=== PATIENT | female | born 1950 | race Caucasian/White ===

== ENCOUNTER → 2019-06-11 18:42 | Outpatient (CLI) | payer MEDICARE, MEDICAID, SELFPAY | PROVIDERS: Visit Provider Nurse Practitioner Family | DX: N23 Unspecified renal colic (principal) | CPT/HCPCS: 87086; 87088; 87186 ==

== ENCOUNTER → 2019-06-16 09:23 | Outpatient (CLI) | payer MEDICARE, MEDICAID, SELFPAY ==
[2019-06-16 09:40] LABS: Basophils % 0.5 % (0.1-2.0); Eosinophils # 0.1 K/mm3 (0.0-0.4); Hematocrit 42.8 % (37.0-47.0); Hemoglobin 13.4 g/dL (12.2-16.2); Lymphocytes % 47.4 % (10-50); Mean Corpuscular HGB Conc 31.4 g/dL (31.8-35.4); Mean Corpuscular Hemoglobin 30.8 pg (27.0-31.2); Mean Corpuscular Volume 98.2 fl (81-99); Mean Platelet Volume 7.1 fl (7.4-10.4); Monocytes # 0.4 K/mm3 (0.1-1.0); Monocytes % 6.2 % (1.7-9.3); Neutrophils # 2.8 K/mm3 (1.8-7.8); Neutrophils % 43.9 % (37.0-80.0); Platelet Count 347 K/mm3 (142-424); Red Blood Count 4.36 M/mm3 (4.20-5.40); Red Cell Distribution Width 12.8 % (11.5-17.5); White Blood Count 6.3 K/mm3 (4.8-10.8)
[2019-06-16 18:17] LABS: Alanine Aminotransferase 19 U/L (12-78); Albumin Level 3.6 gm/dL (3.4-5.0); Albumin/Globulin Ratio 1.1 (1.1-1.8); Alkaline Phosphatase 52 U/L (46-116); Anion Gap 14.6 mEq/L (5-15); Aspartate Amino Transferase 13 U/L (15-37); Bilirubin,Total 0.4 mg/dL (0.2-1.0); Blood Urea Nitrogen 17 mg/dL (7-18); Calcium 9.1 mg/dL (8.5-10.1); Carbon Dioxide 27 mmol/L (21.0-32.0); Chloride 100 mmol/L (98-107); Chol/HDL Ratio 2.6 (1-3.5); Cholesterol 164 mg/dL (140-200); Creatinine,Serum 0.77 mg/dL (0.55-1.02); Estimated Glomerular Filt Rate 75 ml/min (>60); GFR (African American) 91 ML/MIN (>60); Globulin 3.3 gm/dl (1.3-3.2); Glucose 88 mg/dL (74-106); HDL Cholesterol 64 mg/dL (29-89); LDL Cholesterol 77 mg/dL (0-130); Potassium 4.6 mmoL/L (3.5-5.1); Sodium 137 mmol/L (136-145); T4 (Thyroxine) 10.8 ug/dl (4.7-13.3); Thyroid Stimulating Hormone 1.53 uIU/ml (0.358-3.740); Total Protein,Serum 6.9 gm/dL (6.4-8.2); Triglycerides 116 mg/dL (30-200); VLDL Cholesterol 23 mg/dL (0-40)
[2019-06-18 00:27] LABS: Vitamin B12 1277 pg/mL (232-1245); Vitamin D 25 Hydroxy 45.3 ng/mL (30.0-100.0)
== END ==
PROVIDERS: Visit Provider Nurse Practitioner Family
DX: E78.2 Mixed hyperlipidemia (principal); R53.83 Other fatigue; J45.909 Unspecified asthma, uncomplicated; I10 Essential (primary) hypertension; N23 Unspecified renal colic; N30.00 Acute cystitis without hematuria
CPT/HCPCS: 36415; 80053; 80061; 82607; 82652; 84436; 84443; 85025

== ENCOUNTER 2020-06-29 19:38 | Emergency (ER) | payer MEDICARE, MEDICAID, SELFPAY ==
[2020-06-29 19:49] VITALS: BP 145/72; PULSE 94; RESP 22; TEMP 37.1; O2SAT 93; BMI 21.6
--- NOTE | 2020-06-29 19:49 | XR_ITS ---
PROCEDURE: XR CHEST 2V CLINICAL HISTORY: SOB Heavy smoker with shortness of breath COMPARISON: CR CXR CHEST(2 VIEWS-NOT PORTABLE) from 01/26/2016 CR CXR CHEST(2 VIEWS-NOT PORTABLE) from 11/27/2016 FINDINGS: The cardiomediastinal silhouette and pulmonary vascularity are within normal limits. COPD with chronic changes. There are increased markings in the left lung base with obliteration of the left hemidiaphragm noted on the frontal view. There is a mild pectus deformity with obscuration of the right heart border. No acute bony abnormalities. IMPRESSION: Left lower lobe infiltrate Dictated by: Rashid Birmingham MD 06/29/2020 21:46 Rashid Birmingham MD in [place] 06/29/2020 21:46
--- NOTE | 2020-06-29 19:56 | HMH.EDUTC ---
[facility] [place] Clinical Impression: Bronchitis Disposition: Home, Self-Care Condition on Discharge: Good Instructions: Chronic Obstructive Pulmonary Disease (Alternative Therapy), Acute Bronchitis Additional Instructions: ? Start antibiotic today. Be sure to complete entire prescription even if feeling better ? Monitor temp. Tylenol every 4 hours as needed and / or ibuprofen every 6 hours as needed ( As long as your primary care physician has told you that it ok to take both. For fever/aches/pains ER if no less than 101 despite Tylenol or Motrin ? Humidifier/vaporizer or hot steamy shower ? Inhaler every 4-6 hours as needed like we discussed. If unsure how to use it, ask pharmacist to demonstrate how. Should help open airways and improve cough, wheezing, and shortness of breath ? Follow up IMMEDIATELY for new or worsening of symptoms OR no noticeable improvement over the next 48-72 hours. 911 immediately for any life threatening symptoms such as chest pain or difficulty breathing You was tested for COVID and given handout with instructions Call back to the [facility] in the next 48-72 hours for your results REturn if needed Follow up with Family Doctor if no improvement or any worsening of symptoms Straight to ER if any life threatening symptoms Prescriptions: Azithromycin [Z-Steven 250mg Tab] 250 mg PO DIRECTED #6 tab Transmission Status: Pending to [id number] Referrals: Igor Flynn APRN [Primary Care Provider] - As needed Time of Disposition: 20:48 Medical Decision Making - Gee Inquiry Pt receiving controlled substance: No Gee was queried for this patient: No Vital Signs: 06/29/20 19:49 Temperature 98.8 F Temperature Source Oral Pulse Rate [Right Brachial] 94 H Respiratory Rate 22 Blood Pressure [Right Arm] 145/72 H Blood Pressure Mean [Right Arm] 96 Blood Pressure Source [Right Arm] Automatic Cuff Blood Pressure Position [Right Arm] Sitting 02 Sat by Pulse Oximetry 93 L Oxygen Delivery Method Room Air Orders (Tests/Meds): ORDERS Category Date Time Status CXR 2 view (NOT portable) [XR chest 2V] Stat Exams 06/29/20 19:49 Taken Covid-19 Nasal PCR Sendout [facility] 06/29/20 20:30 Received - Radiology Data #1 Image(s): Chest Image Reviewed: Yes I reviewed the patient's radiology image w/the ED provider Discussed with ED physician, COPD with patchy like areas ? infiltrate [facility] [place] HPI - General Stated complaint: SOB Time Seen by Provider: 06/29/20 19:56 Mode of Arrival: Ambulatory Source of Information: Patient Limitations: No Limitations Description of Symptoms (Recalled from Triage Doc. by RN): PATIENT C/O SHORTNESS OF BREATH X 1 WEEK HEENT Symptoms (Recalled from RN notes): No Resp Symptoms (Recalled from RN notes): Yes Skin Symptoms (Recalled from RN notes): No MS Symptoms (Recalled from RN notes): No Functional Status (Recalled from RN notes): WNL - History of Present Illness Provider Complaint: Patient states that she has been feeling short of breath for about a week and has had cough and at times has been able to cough small amounts of phlem States that she feels like she did when she had bronchitis. States that she has also been having some nasal congestion and drainage that has continued to get worse States that she is an everyday smoker and has been using her inhalers at home - Related Data Home Medications Medication Instructions Recorded Confirmed aspirin 81 mg tablet,delayed 81 mg PO DAILY tab 04/23/18 06/11/19 release calcium carbonate 600 mg calcium 600 mg PO BID tab 04/23/18 06/11/19 (1,500 mg) tablet diphenhydramine HCl 25 mg tablet 50 mg PO .QAM-QPM PRN tab 04/23/18 06/11/19 qipvzqqp-glwr-hjv-folic acid 3,500 1 tab PO DAILY tab 04/23/18 06/11/19 unit-18 mg-0.4 mg chewable tablet Previous Rx's Medication Instructions Recorded fluticasone furoate 100 1 inh INHALATION Q24H #60 each 04/23/18 mcg-vilanterol 25 mcg/dose inhalation
[2020-06-29 20:49] VITALS: BP 145/72; PULSE 94; RESP 22; TEMP 37.1; O2SAT 93
[2020-07-01 22:33] LABS: Covid-19 Nasal PCR Sendout Lex Not Detected
== END 2020-06-29 20:55 | disposition home or self-care (01) ==
PROVIDERS: Emergency Provider Nurse Practitioner; PCP Nurse Practitioner Family
DX: J20.9 Acute bronchitis, unspecified (principal); J44.0 Chronic obstructive pulmonary disease with (acute) lower respiratory infection; F17.210 Nicotine dependence, cigarettes, uncomplicated; I10 Essential (primary) hypertension; E78.5 Hyperlipidemia, unspecified; Z79.899 Other long term (current) drug therapy; Z03.818 Encounter for observation for suspected exposure to other biological agents ruled out
CPT/HCPCS: 71046; 99201; U0004

== ENCOUNTER → 2022-01-11 15:29 | Outpatient (CLI) | payer MEDICARE, MEDICAID, SELFPAY ==
[2022-01-11 17:57] LABS: Basophils # 0.1 K/mm3 (0-0.2); Basophils % 1.4 % (0.1-2.0); Eosinophils # 0.1 K/mm3 (0.0-0.4); Eosinophils % 1.1 % (0.1-12.0); Hematocrit 43.8 % (37.0-47.0); Lymphocytes # 2.2 K/mm3 (0.7-4.5); Lymphocytes % 34.2 % (10-50); Mean Corpuscular Hemoglobin 32.4 pg (27.0-31.2); Mean Corpuscular Volume 101.4 fl (81-99); Mean Platelet Volume 8.2 fl (7.4-10.4); Monocytes # 0.4 K/mm3 (0.1-1.0); Monocytes % 6.7 % (1.7-9.3); Neutrophils # 3.7 K/mm3 (1.8-7.8); Neutrophils % 56.6 % (37.0-80.0); Platelet Count 436 K/mm3 (142-424); Red Blood Count 4.32 M/mm3 (4.20-5.40); Red Cell Distribution Width 13.1 % (11.5-17.5); White Blood Count 6.5 K/mm3 (4.8-10.8)
[2022-01-11 18:58] LABS: Alanine Aminotransferase 28 U/L (12-78); Albumin Level 4.3 g/dl (3.5-5.0); Albumin/Globulin Ratio 1.5 (1.1-1.8); Alkaline Phosphatase 73 U/L (38-126); Anion Gap 11.4 mEq/L (5-15); Aspartate Amino Transferase 28 U/L (14-36); Bilirubin,Total 0.3 mg/dl (0.2-1.3); Blood Urea Nitrogen 15 mg/dl (7-17); Calcium 9.3 mg/dl (8.4-10.2); Carbon Dioxide 25 mmol/L (22.0-30.0); Chloride 101 mmol/L (98-107); Chol/HDL Ratio 2.6 (1-3.5); Cholesterol 227 mg/dl (140-200); Estimated Glomerular Filt Rate 99 ml/min (>60); GFR (African American) 120 ML/MIN (>60); Globulin 2.8 g/dL (1.3-3.2); Glucose 106 mg/dl (74-100); HDL Cholesterol 86 mg/dl (40-60); Potassium 4.4 mmoL/L (3.5-5.1); Sodium 133 mmol/L (136-145); Total Protein,Serum 7.1 g/dl (6.3-8.2); Triglycerides 172 mg/dl (30-150); VLDL Cholesterol 34 mg/dL (0-40)
[2022-01-11 19:09] LABS: Direct LDL Cholesterol 104.11 mg/dL (100-129)
[2022-01-11 19:17] LABS: T4 (Thyroxine) 10.8 ug/dl (5.53-11.0)
[2022-01-11 19:30] LABS: Thyroid Stimulating Hormone 0.89 uIU/mL (0.465-4.68)
== END ==
PROVIDERS: Visit Provider Nurse Practitioner Family
DX: I10 Essential (primary) hypertension (principal); E78.2 Mixed hyperlipidemia; J40 Bronchitis, not specified as acute or chronic
CPT/HCPCS: 80053; 80061; 84436; 84443; 85025

== ENCOUNTER 2022-04-21 12:29 | Emergency (ER) | payer MEDICARE, MEDICAID, SELFPAY ==
[2022-04-21 12:55] VITALS: BP 141/89; PULSE 79; RESP 22; TEMP 36.9; O2SAT 93; BMI 21.9
--- NOTE | 2022-04-21 13:10 | XR_ITS ---
FINAL REPORT CLINICAL HISTORY: congestion, pt states that she has been SOA since yesterday, Smoker for 30+ years. COMPARISON: June 29, 2020 FINDINGS: Two views of the chest were obtained. The heart size and pulmonary vascularity are within normal limits. The mediastinum is normal. Mild scarring is noted. There is no pneumothorax. The bony thorax is intact. IMPRESSION: No active cardiopulmonary disease. Reviewed, Interpreted and Dictated by Braden Gastelum III, MD Transcribed by Danielle Lee Authenticated and [facility]
--- NOTE | 2022-04-21 13:21 | HMH.EDUTC ---
[facility] [place]: COPD exacerbation Disposition: Home, Self-Care Condition on Discharge: Good Instructions: DI for Chronic Obstructive Pulmonary Disease, DI for Shortness of Breath, COPD: When to Call for Help Additional Instructions: ? Start antibiotic today. Be sure to complete entire prescription even if feeling better ? Monitor temp. Tylenol every 4 hours as needed and / or ibuprofen every 6 hours as needed ( As long as your primary care physician has told you that it ok to take both. For fever/aches/pains ER if no less than 101 despite Tylenol or Motrin ? Humidifier/vaporizer or hot steamy shower ? Inhaler every 4-6 hours as needed like we discussed. If unsure how to use it, ask pharmacist to demonstrate how. Should help open airways and improve cough, wheezing, and shortness of breath *Tessalon Perles will not cause drowsiness but use at bedtime to help stop cough so that you may get some rest. *Start steroid today. Helps with inflammation therefore, cough and wheezing. Follow directions on the package. Reviewed side effects. Patient reports taking them before. Follow up IMMEDIATELY for new or worsening of symptoms OR no noticeable improvement over the next 48-72 hours. 911 immediately for any life threatening symptoms such as chest pain or difficulty breathing Prescriptions: Benzonatate [Benzonatate 100mg cap] 100 mg PO Q8HP PRN #15 cap PRN Reason: Cough Transmission Status: Received by [facility] Nystatin [Nystatin Susp 500,000 Units/5mL Udc] 4 ml PO QID 10 Days #160 ml Transmission Status: Received by [facility] predniSONE [Prednisone 20mg Tab] 20 mg PO BID 5 Days #10 tab Transmission Status: Received by [facility] Azithromycin [Z-Steven 250mg Tab] 250 mg PO DIRECTED #6 tab Transmission Status: Received by [facility] Referrals: Marty Bennett MD [Primary Care Provider] - As needed Time of Disposition: 14:15 Medical Decision Making - Gee Inquiry Pt receiving controlled substance: No Gee was queried for this patient: No Vital Signs: 04/21/22 12:55 04/21/22 14:20 Temperature 98.4 F 98.4 F Temperature Source Oral Pulse Rate 79 Pulse Rate [Right Brachial] 79 Respiratory Rate 22 22 Blood Pressure 141/89 H Blood Pressure [Right Arm] 141/89 H Blood Pressure Mean [Right Arm] 106 Blood Pressure Source [Right Arm] Automatic Cuff Blood Pressure Position [Right Arm] Sitting 02 Sat by Pulse Oximetry 93 L Oxygen Delivery Method Room Air - Radiology Data #1 Image(s): Chest Image Reviewed: Yes I reviewed the patient's radiology image no acute changes Medical Decision Narrative: medication discussed with pharmacy [facility] [place] - General Stated complaint: SOB; vomiting Time Seen by Provider: 04/21/22 13:21 Mode of Arrival: Ambulatory Source of Information: Patient Limitations: No Limitations Description of Symptoms (Recalled from Triage Doc. by RN): PATIENT C/O COUGH, SOA, AND NAUSEA SINCE YESTERDAY HEENT Symptoms (Recalled from RN notes): No Resp Symptoms (Recalled from RN notes): Yes Skin Symptoms (Recalled from RN notes): No MS Symptoms (Recalled from RN notes): No Functional Status (Recalled from RN notes): WNL - History of Present Illness Provider Complaint: Patient states she is a smoker and that she feels like she may have bronchitis States that she has been feeling a little SOA at times, cough, and N/V State that today she was still not feeling well so she came in to get checked before it go too bad States she also has COPD and it may be an exacerbation of that - Related Data Home Medications Medication Instructions Recorded Confirmed aspirin 81 mg tablet,delayed 81 mg PO DAILY tab 04/23/18 01/11/22 release calcium carbonate 600 mg calcium 600 mg PO BID tab 04/23/18 01/11/22 (1,500 mg) tablet diphenhydramine HCl 25 mg tablet 50 mg PO .QAM-QPM PRN tab 04/23/18 01/11/22 [id number]-
[2022-04-21 14:20] VITALS: BP 141/89; PULSE 79; RESP 22; TEMP 36.9; O2SAT 93
== END 2022-04-21 14:30 | disposition home or self-care (01) ==
PROVIDERS: Emergency Provider Nurse Practitioner; PCP Emergency Medicine
DX: J44.1 Chronic obstructive pulmonary disease with (acute) exacerbation (principal)
CPT/HCPCS: 71046; 99212; G0463

== ENCOUNTER → 2022-07-29 08:41 | Outpatient (CLI) | payer MEDICARE, MEDICAID, SELFPAY | PROVIDERS: PCP Nurse Practitioner Family; Visit Provider Nurse Practitioner Family | DX: N15.9 Renal tubulo-interstitial disease, unspecified (principal); B96.89 Other specified bacterial agents as the cause of diseases classified elsewhere | CPT/HCPCS: 87086; 87088; 87186 ==

== ENCOUNTER 2022-08-04 20:47 | Emergency (ER) | payer MEDICARE, MEDICAID, SELFPAY ==
[2022-08-04 20:57] VITALS: BP 166/94; PULSE 104; RESP 16; TEMP 36.4; O2SAT 94; BMI 23.3
--- NOTE | 2022-08-04 20:58 | ECG_ITS ---
APPROVED REPORT Exam: Resting ECG HR:96 bpm ECG Measurements Heart Rate 96 AXES NJ 145 P 85 QRSd 78 QRS 76 QT 333 T 76 QTc 387 Conclusion SINUS RHYTHM WITH SINUS ARRHYTHMIA bi-atriial abnormality BORDERLINE ECG UNCONFIRMED REPORT Electronically signed by : Venancio Mcdermott MD 08/05/2022 17:39:47
[2022-08-04 21:01] VITALS: BP 155/90; PULSE 99; O2SAT 93
--- NOTE | 2022-08-04 21:03 | HMH.EDGENADL ---
Discharge Plan Disposition Patient Disposition: Home, Self-Care Condition: Good Prescriptions Prescriptions: New doxycycline hyclate 100 mg capsule 100 mg PO BID 5 Days Qty: 10 0RF No Action aspirin [Adult Low Dose Aspirin] 81 mg tablet,delayed release (DR/EC) 81 mg PO DAILY calcium carbonate [Calcium 600] 600 mg calcium (1,500 mg) tablet 600 mg PO BID phmkxfeu-fvfe-bdz-folic acid [Centrum] 3,500-18-0.4 unit-mg-mg tablet,chewable 1 tab PO DAILY lisinopril-hydrochlorothiazide 20-12.5 mg tablet 1 tab PO DAILY Rx Instructions: Take 1 tablet by mouth once daily pravastatin 40 mg tablet 40 mg PO DAILY estradiol 1 mg tablet See Rx Instructions .ROUTE .COMPLEX Rx Instructions: Take 1 tablet by mouth once daily meclizine 25 mg tablet See Rx Instructions .ROUTE .COMPLEX Rx Instructions: TAKE 1 TABLET BY MOUTH TWICE DAILY NEEDED FOR MOTION SICKNESS carbidopa-levodopa 10-100 mg tablet See Rx Instructions .ROUTE .COMPLEX Rx Instructions: TAKE 1 TABLET BY MOUTH ONCE DAILY AT BEDTIME ibuprofen 600 mg tablet See Rx Instructions .ROUTE .COMPLEX Rx Instructions: TAKE 1 TABLET BY MOUTH EVERY 6 HOURS NEEDED FOR PAIN albuterol sulfate 90 mcg/actuation HFA aerosol inhaler See Rx Instructions .ROUTE .COMPLEX Rx Instructions: INHALE 1 PUFF BY MOUTH EVERY 6 HOURS WITH SPACER fluticasone propionate 50 mcg/actuation spray,suspension See Rx Instructions .ROUTE .COMPLEX Rx Instructions: Use 1 spray(s) in each nostril once daily escitalopram oxalate 10 mg tablet See Rx Instructions .ROUTE .COMPLEX Rx Instructions: TAKE 1 TABLET BY MOUTH ONCE DAILY AT BEDTIME fluticasone furoate-vilanterol [Breo Ellipta] 100-25 mcg/dose blister with device See Rx Instructions .ROUTE .COMPLEX Rx Instructions: Inhale 1 puff by mouth once daily Referrals Follow up/Referrals: Marty Bennett MD [Primary Care Provider] - See instructions Activity Restrictions/Add. Instructions Additional Instructions/Restrictions: Please take your antibiotics as prescribed. Continue to drink plenty of fluids at home. If your condition worsens or any other concerns arise, please return to the emergency department for reassessment. Please follow-up with your primary care physician. Clinical Impressions Clinical Impression: Acute exacerbation of chronic obstructive pulmonary disease (COPD), Allergic reaction Instructions Patient Instructions: DI for Chronic Obstructive Pulmonary Disease Discharge ED Provider: Darcy Bal General Adult HPI General Chief complaint: Shortness of Breath/Dyspnea Stated complaint: both legs red,swollen,rash Time Seen by Provider: 08/04/22 21:03 Mode of Arrival: Family Vehicle Source of Information: Patient Limitations: No Limitations Description of Symptoms (Recalled from ER Triage Doc. by RN): 71 YO FEMALE PRESENTS WITH CC LOWER EXTREMITY RASH AND LOWER EXTREMITY EDEMA THAT BEGAN ALONG WITH FEELING LIKE CRAP LAST SUNDAY. STATES SHE FEELS SOMEWHAT DYSPNEIC. REPORTS THAT HER PCP INITIATED HER ON A MEDICINE FOR A KIDNEY INFECTION TWO WEEKS AGO. NO OTHER CHANGES OR NEW ISSUES/MEDICATIONS OTHER THAN THE ONE FOR THE INFECTION. PMH: COPD, 1 PPD+ SMOKER X 40 YEARS. AFEBRILE. DENIES CP/N/V/D. History of Present Illness HPI narrative: Patient is a 71-year-old female with a past medical history of COPD, not on oxygen at home presenting with a chief complaint of worsening shortness of breath for the past 1 week, generalized malaise and new rash on her bilateral lower extremities. She denies a fever at home, chest pain, productive cough, hemoptysis, lower extremity swelling, abdominal pain, chest pain, nausea, vomiting, diaphoresis, changes in GI/. Patient denies any new allergens or exposures. Patient has been rubbing Biofreeze on her lower extremities for pain due to arthritis. Ja
--- NOTE | 2022-08-04 21:14 | PC.NURSE ---
Dr. De La Cruz at [facility]
[2022-08-04 21:30] VITALS: BP 140/70; PULSE 90; O2SAT 92
--- NOTE | 2022-08-04 21:45 | XR_ITS ---
PROCEDURE INFORMATION: Exam: XR Chest Exam date and time: 08/04/2022 9:42 PM Age: 71 years old Clinical indication: Shortness of breath TECHNIQUE: Imaging protocol: Radiologic exam of the chest. Views: 2 views. COMPARISON: CR XR CHEST 2V 04/21/2022 1:13 PM FINDINGS: Lungs: Stigmata of old granulomatous disease. Bilateral apical scarring. Pleural spaces: Unremarkable. No pleural effusion. No pneumothorax. Heart/Mediastinum: Unremarkable. No cardiomegaly. Vasculature: Vascular calcifications. Bones/joints: Unremarkable. IMPRESSION: No acute findings.
[2022-08-04 21:57] LABS: Basophils # 0.1 K/mm3 (0-0.2); Basophils % 0.4 % (0.1-2.0); Eosinophils # 0.5 K/mm3 (0.0-0.4); Eosinophils % 2.7 % (0.1-12.0); Hematocrit 43.5 % (37.0-47.0); Hemoglobin 14.1 g/dL (12.2-16.2); Lymphocytes # 0.9 K/mm3 (0.7-4.5); Lymphocytes % 5.3 % (10-50); Mean Corpuscular HGB Conc 32.4 g/dL (31.8-35.4); Mean Corpuscular Volume 98.8 fl (81-99); Mean Platelet Volume 8.2 fl (7.4-10.4); Monocytes # 0.5 K/mm3 (0.1-1.0); Monocytes % 3.1 % (1.7-9.3); Neutrophils # 14.6 K/mm3 (1.8-7.8); Neutrophils % 88.4 % (37.0-80.0); Platelet Count 441 K/mm3 (142-424); Red Cell Distribution Width 13.5 % (11.5-17.5); White Blood Count 16.5 K/mm3 (4.8-10.8)
[2022-08-04 21:58] LABS: Chloride 92 mmol/L (98-107); Potassium 3.5 mmoL/L (3.5-5.1); Sodium 129 mmol/L (136-145)
[2022-08-04 21:59] LABS: MANUAL DIFFERENTIAL MANUAL DIFFERENTIAL (MANUAL DIFF)
[2022-08-04 22:00] VITALS: BP 167/88; PULSE 96; O2SAT 92
[2022-08-04 22:01] LABS: Alanine Aminotransferase 31 U/L (12-78); Albumin Level 3.7 g/dl (3.5-5.0); Albumin/Globulin Ratio 1.2 (1.1-1.8); Alkaline Phosphatase 87 U/L (38-126); Anion Gap 12.5 mEq/L (5-15); Aspartate Amino Transferase 30 U/L (14-36); Bilirubin,Total 0.1 mg/dl (0.2-1.3); Blood Urea Nitrogen 11 mg/dl (7-17); Carbon Dioxide 28 mmol/L (22.0-30.0); Creatinine Clearance Estimated 50 mL/min (50-200); Estimated Glomerular Filt Rate 99 ml/min (>60); GFR (African American) 120 ML/MIN (>60); Total Protein,Serum 6.7 g/dl (6.3-8.2)
[2022-08-04 22:02] LABS: Calcium 9.2 mg/dl (8.4-10.2); Glucose 148 mg/dl (74-100)
[2022-08-04 22:07] LABS: C-Reactive Protein 27.1 mg/L (0-4)
[2022-08-04 22:12] LABS: NT Pro Brain Natriuretic Pep. 1270 pg/mL (0-125)
[2022-08-04 22:16] LABS: Troponin I 0.03 ng/ml (0.00-0.034)
[2022-08-04 22:19] LABS: Lymphocytes % 8 % (10-50); Macrocytosis 1+; Monocytes % 1 % (2-9); Neutrophils % 83 % (42-76); Platelet Estimate Slight Increase; Total Cells Counted 100
[2022-08-04 22:30] VITALS: BP 157/77; PULSE 93; O2SAT 93
--- NOTE | 2022-08-04 22:30 | PC.NURSE ---
RT at [facility] to administer breathing treatment
[2022-08-04 23:53] LABS: Appearance,Urine CLEAR (Clear); Blood, Urine TRACE-I (Negative); Color,Urine YELLOW (Yellow); Glucose,Urine (UA) Negative (Negative); Ketones,Urine 1+ (Negative); Leukocyte Esterase,Urine Negative (Negative); Microscopic, Urine URINE MICROSCOPIC (MICROSCOPIC); Nitrate,Urine Negative (Negative); Protein,Urine Negative (Negative); Specific Gravity, Urine 1.015 (1.005-1.030); Urobilinogen,Urine 0.2 EU/dl (0.2)
[2022-08-04 23:58] LABS: Bilirubin,Urine Negative (Negative)
[2022-08-05 00:41] LABS: Troponin I 0.03 ng/ml (0.00-0.034)
[2022-08-05 01:29] VITALS: BP 166/67; PULSE 72; RESP 16; TEMP 36.8; O2SAT 98
== END 2022-08-05 01:42 | disposition home or self-care (01) ==
PROVIDERS: Emergency Provider Emergency Medicine; PCP Emergency Medicine
DX: J44.1 Chronic obstructive pulmonary disease with (acute) exacerbation (principal); T78.40XA Allergy, unspecified, initial encounter; Z79.82 Long term (current) use of aspirin; Z79.890 Hormone replacement therapy; Z79.899 Other long term (current) drug therapy; E78.5 Hyperlipidemia, unspecified; I10 Essential (primary) hypertension; G25.81 Restless legs syndrome
CPT/HCPCS: 71046; 80053; 81001; 83880; 84484; 85007; 85025; 86140; 93005; 94640; 99284

== ENCOUNTER → 2023-08-22 06:40 | Outpatient (CLI) | payer MEDICARE, MEDICAID, SELFPAY ==
[2023-08-22 18:23] LABS: Basophils % 0.6 % (0.1-2.0); Eosinophils # 0.1 K/mm3 (0.0-0.4); Eosinophils % 0.9 % (0.1-12.0); Hematocrit 43.7 % (37.0-47.0); Hemoglobin 14.7 g/dL (12.2-16.2); Lymphocytes % 30.8 % (10-50); Mean Corpuscular HGB Conc 33.7 g/dL (31.8-35.4); Mean Corpuscular Hemoglobin 34.8 pg (27.0-31.2); Mean Corpuscular Volume 103.4 fl (81-99); Mean Platelet Volume 7.4 fl (7.4-10.4); Monocytes # 0.5 K/mm3 (0.1-1.0); Monocytes % 7.7 % (1.7-9.3); Neutrophils # 3.9 K/mm3 (1.8-7.8); Neutrophils % 60.1 % (37.0-80.0); Platelet Count 387 K/mm3 (142-424); Red Blood Count 4.23 M/mm3 (4.20-5.40); Red Cell Distribution Width 12.5 % (11.5-17.5); White Blood Count 6.5 K/mm3 (4.8-10.8)
[2023-08-22 19:20] LABS: Alanine Aminotransferase 22 U/L (12-78); Albumin Level 4.2 g/dl (3.5-5.0); Albumin/Globulin Ratio 1.6 (1.1-1.8); Alkaline Phosphatase 58 U/L (38-126); Aspartate Amino Transferase 27 U/L (14-36); Blood Urea Nitrogen 15 mg/dl (7-17); Calcium 9.5 mg/dl (8.4-10.2); Carbon Dioxide 25 mmol/L (22.0-30.0); Chloride 92 mmol/L (98-107); Chol/HDL Ratio 1.7 (1-3.5); Cholesterol 171 mg/dl (140-200); Estimated Glomerular Filt Rate 122 ml/min (>60); GFR (African American) 148 ML/MIN (>60); Globulin 2.6 g/dL (1.3-3.2); Glucose 96 mg/dl (74-100); HDL Cholesterol 99 mg/dl (40-60); Potassium 4.3 mmoL/L (3.5-5.1); Total Protein,Serum 6.8 g/dl (6.3-8.2); Triglycerides 86 mg/dl (30-150); VLDL Cholesterol 17 mg/dL (0-40)
[2023-08-22 19:29] LABS: Bilirubin,Total 0.1 mg/dl (0.2-1.3)
[2023-08-22 19:43] LABS: Direct LDL Cholesterol 69.86 mg/dL (100-129)
[2023-08-22 19:54] LABS: Thyroid Stimulating Hormone 1.06 uIU/mL (0.465-4.68)
[2023-08-22 21:49] LABS: Anion Gap 16.3 mEq/L (5-15); Sodium 129 mmol/L (136-145)
== END ==
PROVIDERS: PCP Nurse Practitioner Family; Visit Provider Nurse Practitioner Family
DX: E55.9 Vitamin D deficiency, unspecified (principal); I10 Essential (primary) hypertension; Z68.1 Body mass index [BMI] 19.9 or less, adult; Z72.0 Tobacco use
CPT/HCPCS: 80053; 80061; 82306; 84443; 85025

== ENCOUNTER → 2023-08-24 14:30 | Outpatient (CLI) | payer MEDICARE, MEDICAID, SELFPAY ==
--- NOTE | 2023-08-24 14:35 | XR_ITS ---
FINAL REPORT CLINICAL HISTORY: R Hip Pain COMPARISON: None FINDINGS: RIGHT HIP Two views of the right hip demonstrate no acute fracture or dislocation. There is severe degenerative change of the right hip with marked joint space narrowing and sclerosis. There is mild degenerative change present involving the left hip. The visualized bony structures are well aligned. No soft tissue abnormality is seen. IMPRESSION: Severe degenerative change right hip. Reviewed, Interpreted and Dictated by Braden Gastelum III, MD Transcribed by Tammy Black Authenticated and [facility]
== END ==
PROVIDERS: PCP Nurse Practitioner Family; Visit Provider Nurse Practitioner Family
DX: M25.551 Pain in right hip (principal)
CPT/HCPCS: 73502

== ENCOUNTER 2024-09-16 15:54 | Outpatient (CLI) | payer MEDICARE, MEDICAID, SELFPAY ==
[2024-09-16 18:28] LABS: Basophils # 0.1 K/mm3 (0-0.2); Basophils % 0.9 % (0.1-2.0); Eosinophils # 0.1 K/mm3 (0.0-0.4); Eosinophils % 1.1 % (0.1-12.0); Hematocrit 41.7 % (37.0-47.0); Hemoglobin 13.9 g/dL (12.2-16.2); Lymphocytes # 2.1 K/mm3 (0.7-4.5); Lymphocytes % 26.5 % (10-50); Mean Corpuscular HGB Conc 33.4 g/dL (31.8-35.4); Mean Corpuscular Hemoglobin 32.8 pg (27.0-31.2); Mean Corpuscular Volume 98.5 fl (81-99); Mean Platelet Volume 7.7 fl (7.4-10.4); Monocytes # 0.6 K/mm3 (0.1-1.0); Monocytes % 7.6 % (1.7-9.3); Neutrophils # 5.1 K/mm3 (1.8-7.8); Neutrophils % 63.8 % (37.0-80.0); Platelet Count 374 K/mm3 (142-424); Red Blood Count 4.24 M/mm3 (4.20-5.40); Red Cell Distribution Width 12.6 % (11.5-17.5); White Blood Count 7.9 K/mm3 (4.8-10.8)
[2024-09-16 18:48] LABS: Alanine Aminotransferase 23 U/L (12-78); Albumin Level 4.1 g/dl (3.5-5.0); Albumin/Globulin Ratio 1.8 (1.1-1.8); Alkaline Phosphatase 76 U/L (38-126); Anion Gap 9.6 mEq/L (5-15); Aspartate Amino Transferase 25 U/L (14-36); Bilirubin,Total 0.5 mg/dl (0.2-1.3); Blood Urea Nitrogen 17 mg/dl (7-17); Calcium 9.7 mg/dl (8.4-10.2); Carbon Dioxide 28 mmol/L (22.0-30.0); Chloride 97 mmol/L (98-107); Chol/HDL Ratio 1.6 (1-3.5); Cholesterol 173 mg/dl (140-200); Estimated Glomerular Filt Rate 82 ml/min (>60); GFR (African American) 100 ML/MIN (>60); Globulin 2.3 g/dL (1.3-3.2); Glucose 107 mg/dl (74-100); HDL Cholesterol 107 mg/dl (40-60); Potassium 4.6 mmoL/L (3.5-5.1); Sodium 130 mmol/L (136-145); Total Protein,Serum 6.4 g/dl (6.3-8.2); Triglycerides 69 mg/dl (30-150); VLDL Cholesterol 14 mg/dL (0-40)
[2024-09-16 18:58] LABS: Direct LDL Cholesterol 63.31 mg/dL (100-129)
[2024-09-16 19:05] LABS: 25-OH Vitamin D, Total 44.6 ng/mL (30-100)
[2024-09-16 19:18] LABS: Thyroid Stimulating Hormone 1.78 uIU/mL (0.465-4.68)
== END 2024-09-16 23:59 | disposition home or self-care (01) ==
LOC: LAB.DROPOF 09-17 13:10
PROVIDERS: PCP Nurse Practitioner Family; Visit Provider Nurse Practitioner Family
DX: I10 Essential (primary) hypertension (principal); E78.2 Mixed hyperlipidemia; E55.9 Vitamin D deficiency, unspecified
CPT/HCPCS: 80053; 80061; 82306; 84443; 85025

== ENCOUNTER 2025-08-12 15:47 | Outpatient (CLI) | payer MEDICARE, MEDICAID, SELFPAY ==
[2025-08-12 21:43] LABS: Hematocrit 41.9 % (37.0-47.0); Hemoglobin 13.4 g/dL (12.2-16.2); Immature Granulocytes % 0.4 %; Mean Corpuscular HGB Conc 32.0 g/dL (31.8-35.4); Mean Corpuscular Hemoglobin 31.3 pg (27.0-31.2); Mean Corpuscular Volume 97.9 fl (81-99); Nucleated Red Blood Cells % 0 %; Platelet Count 396 K/mm3 (142-424); Red Blood Count 4.28 M/mm3 (4.20-5.40); Red Cell Distribution Width-SD 46.4 fL; White Blood Count 7.5 K/mm3 (4.8-10.8)
[2025-08-12 22:21] LABS: Alanine Aminotransferase 17 U/L (12-78); Albumin Level 3.7 g/dl (3.5-5.0); Albumin/Globulin Ratio 1.5 (1.1-1.8); Alkaline Phosphatase 77 U/L (38-126); Anion Gap 11.1 mEq/L (5-15); Aspartate Amino Transferase 24 U/L (14-36); Bilirubin,Total 0.5 mg/dl (0.2-1.3); Blood Urea Nitrogen 26 mg/dl (7-17); Calcium 9.1 mg/dl (8.4-10.2); Carbon Dioxide 27 mmol/L (22.0-30.0); Chloride 94 mmol/L (98-107); Cholesterol 163 mg/dl (140-200); Creatinine,Serum 1.00 mg/dl (0.52-1.04); Estimated Glomerular Filt Rate 55 ml/min (>60); GFR (African American) 66 ML/MIN (>60); Globulin 2.4 g/dL (1.3-3.2); Glucose 86 mg/dl (74-100); HDL Cholesterol 86 mg/dl (40-60); Potassium 5.1 mmoL/L (3.5-5.1); Sodium 127 mmol/L (136-145); Total Protein,Serum 6.1 g/dl (6.3-8.2); Triglycerides 62 mg/dl (30-150)
[2025-08-12 22:36] LABS: Free T4 (Free Thyroxine) 1.42 ng/dl (0.78-2.19)
[2025-08-12 22:51] LABS: Thyroid Stimulating Hormone 1.43 uIU/mL (0.465-4.68)
[2025-08-12 23:22] LABS: Hepatitis C Ab Qual. W/ RFX NEGATIVE (Negative)
[2025-08-14 07:16] LABS: Hepatitis B Surface Antigen Negative (Negative)
== END 2025-08-12 23:59 | disposition home or self-care (01) ==
LOC: LAB.DROPOF 08-13 14:01
PROVIDERS: PCP Nurse Practitioner Family; Visit Provider Nurse Practitioner Family
DX: E78.5 Hyperlipidemia, unspecified (principal); R53.83 Other fatigue; I10 Essential (primary) hypertension
CPT/HCPCS: 80053; 80061; 84439; 84443; 85025; 86803; 87340; 87389

== ENCOUNTER 2025-10-08 13:18 | Outpatient (CLI) | payer MEDICARE, MEDICAID, SELFPAY ==
[2025-10-08 20:25] LABS: Coronavirus 19, PCR Not Detected (NotDetected); Influenza A, PCR Not Detected (NotDetected); Influenza B, PCR Not Detected (NotDetected)
== END 2025-10-08 23:59 | disposition home or self-care (01) ==
LOC: LAB.DROPOF 10-09 12:44
PROVIDERS: PCP Nurse Practitioner Family; Visit Provider Nurse Practitioner
DX: J06.9 Acute upper respiratory infection, unspecified (principal)
CPT/HCPCS: 87631

== ENCOUNTER 2025-10-09 15:15 | Emergency (ER) | payer MEDICARE, MEDICAID, SELFPAY ==
[2025-10-09] VITALS (11 sets, daily range): BP systolic 84–147; BP diastolic 40–80; PULSE 62–96; RESP 14–28; TEMP 36.6–36.7; O2SAT 90–100; BMI 19.3
--- NOTE | 2025-10-09 15:30 | ED_ITS ---
<Statement entered by Helena Shelton DO - 10/11/25 22:13> I was consulted by the TAYLOR, and we discussed the complexity of problems being addressed. I approve the treatment and management plan for this patient's care in the emergency department, thus performing a substantial portion of the medical decision making. Helena Shelton DO Discharge Plan Disposition Chief Complaint: Upper Respiratory Infection Prescriptions Prescriptions: No Action meclizine 25 mg tablet 25 mg PO TID Qty: 90 2RF azithromycin 250 mg tablet See Rx Instructions PO .COMPLEX Qty: 6 0RF Rx Instructions: For 250 mg dose pack: take 500 mg today (day 1), then 250 mg for 4 days (days 2-5) PO aspirin [Adult Low Dose Aspirin] 81 mg tablet,delayed release (DR/EC) 81 mg PO DAILY calcium carbonate [Calcium 600] 600 mg calcium (1,500 mg) tablet 600 mg PO BID mufuesvd-epki-stk-folic acid [Centrum] 3,500-18-0.4 unit-mg-mg tablet,chewable 1 tab PO DAILY albuterol sulfate 90 mcg/actuation HFA aerosol inhaler See Rx Instructions .ROUTE .COMPLEX Qty: 8.5 2RF Rx Instructions: INHALE 1 PUFF BY MOUTH EVERY 6 HOURS WITH SPACER carbidopa-levodopa 10-100 mg tablet See Rx Instructions .ROUTE .COMPLEX Qty: 90 3RF Dose Instruction: TAKE 1 TABLET BY MOUTH ONCE DAILY AT BEDTIME Rx Instructions: TAKE 1 TABLET BY MOUTH ONCE DAILY AT BEDTIME celecoxib 100 mg capsule See Rx Instructions .ROUTE .COMPLEX Qty: 180 2RF Dose Instruction: Take 1 capsule by mouth twice daily Rx Instructions: Take 1 capsule by mouth twice daily escitalopram oxalate 20 mg tablet See Rx Instructions .ROUTE .COMPLEX Qty: 90 3RF Dose Instruction: Take 1 tablet by mouth once daily Rx Instructions: Take 1 tablet by mouth once daily fluticasone propionate 50 mcg/actuation spray,suspension See Rx Instructions .ROUTE .COMPLEX Qty: 16 2RF Rx Instructions: Use 1 spray(s) in each nostril once daily lisinopril-hydrochlorothiazide 20-12.5 mg tablet See Rx Instructions .ROUTE .COMPLEX Qty: 90 3RF Dose Instruction: TAKE 1 TABLET BY MOUTH ONCE DAILY FOR HIGH BLOOD PRESSURE Rx Instructions: TAKE 1 TABLET BY MOUTH ONCE DAILY FOR HIGH BLOOD PRESSURE pravastatin 40 mg tablet See Rx Instructions .ROUTE .COMPLEX Qty: 90 3RF Dose Instruction: TAKE 1 TABLET BY MOUTH ONCE DAILY FOR CHOLESTEROL Rx Instructions: TAKE 1 TABLET BY MOUTH ONCE DAILY FOR CHOLESTEROL ropinirole 3 mg tablet See Rx Instructions .ROUTE .COMPLEX Qty: 90 3RF Dose Instruction: Take 1 tablet by mouth once daily Rx Instructions: Take 1 tablet by mouth once daily Auvelity 45-105 mg tablet, IR and ER, biphasic See Rx Instructions .ROUTE .COMPLEX Qty: 180 3RF Dose Instruction: TAKE 1 TABLET BY MOUTH TWICE DAILY FOR DEPRESSION, SUICIDAL IDEATION Rx Instructions: TAKE 1 TABLET BY MOUTH TWICE DAILY FOR DEPRESSION, SUICIDAL IDEATION estradiol 1 mg tablet See Rx Instructions .ROUTE .COMPLEX Qty: 90 2RF Dose Instruction: Take 1 tablet by mouth once daily Rx Instructions: Take 1 tablet by mouth once daily fluticasone furoate-vilanterol [Breo Ellipta] 100-25 mcg/dose blister with device See Rx Instructions .ROUTE .COMPLEX Qty: 60 3RF Dose Instruction: INHALE 1 PUFF BY MOUTH ONCE DAILY FOR ALLERGY SYMPTOMS Rx Instructions: INHALE 1 PUFF BY MOUTH ONCE DAILY FOR ALLERGY SYMPTOMS Referrals Follow up/Referrals: Jaime Fernández APRN [Primary Care Provider, Family Practice] - See instructions Print Language Print Language: Armenian Discharge ED Provider: Helena Shelton General Adult HPI General Chief complaint: Upper Respiratory Infection Stated complaint: weak, dizzy, unable to eat Time Seen by Provider: 10/09/25 15:21 Mode of Arrival: Wheelchair Source of Information: Patient Description of Symptoms (Recalled from ER Triage Doc. by RN): Patient complaining of nausea, chills, body aches that started a few days ago. States she tested negative for flu/covid/rsv yesterday at [facility] and was given steroid shot and prescription for azithromycin, which she started today. History of Present Illness HPI narrative: 74-year-old female presents to the ED today for complaint of nausea, chills, body ache that all started a few days ago. She tested negative for flu, COVID, RSV yesterday at the urgent treatment center. She was given steroid shot and prescription of azithromycin. She did take 1 today. Patient says she is weak and dizzy with shortness of air and right hip pain. Patient has a long history of trochanteric bursitis and chronic osteoarthritis of right hip pain, COPD, UTIs Related Data Home Medications ?Medication ?Instructions ?Recorded ?Confirmed aspirin 81 mg tablet,delayed 81 mg PO DAILY ANTIPLATEL ET 04/23/18 10/08/25 release (Adult Low Dose Aspirin) calcium carbonate (Calcium 600) 600 mg PO BID Suppleme nt 04/23/18 10/08/25 ubnooqsv-dubf-eus-folic acid 3,500 1 tab PO DAILY Supp lement 04/23/18 10/08/25 unit-18 mg-0.4 mg chewable tablet (Centrum) Previous Rx's ?Medication ?Instructions ?Recorded dextromethorphan IR 45 See Rx Instructions .Route 0 01/13/25 mg-bupropion ER 105 mg biphasic .COMPLEX #180 tabs tablet (Auvelity) estradiol 1 mg tablet See Rx Instructions .Route 0 01/13/25 .COMPLEX #90 tabs albuterol sulfate 90 mcg/actuation See Rx Instructions .Route 03/04/25 aerosol inhaler .COMPLEX SOA #8.5 grams carbidopa 10 mg-levodopa 100 mg See Rx Instructions .R oute 03/04/25 tablet .COMPLEX #90 tabs celecoxib 100 mg capsule See Rx Instructions .Route 0 03/04/25 .COMPLEX #180 caps escitalopram oxalate 20 mg tablet See Rx Instructions .Route 03/04/25 .COMPLEX #90 tabs fluticasone propionate 50 See Rx Instructions .Route 0 03/04/25 mcg/actuation nasal .COMPLEX Allergy symptoms #1 6 grams spray,suspension lisinopril 20 See Rx Instructions .Route 0 03/04/25 mg-hydrochlorothiazide 12.5 mg .COMPLEX #90 tabs tablet pravastatin 40 mg tablet See Rx Instructions .Route 0 03/04/25 .COMPLEX #90 tabs ropinirole 3 mg tablet See Rx Instructions .Route 0 03/04/25 .COMPLEX #90 tabs Breo Ellipta 100 mcg-25 mcg/dose See Rx Instructions . Route 06/25/25 powder for inhalation (fluticasone .COMPLEX #60 ea furoate-vilanterol) meclizine 25 mg tablet 25 mg PO TID #90 tabs azithromycin 250 mg tablet See Rx Instructions PO .COM PLEX #6 10/08/25 tabs Allergies Allergy/AdvReac Type Severity Reaction Status Date / Time nitrofurantoin Allergy Mild Anaphylaxis Verified 10/09/25 15:31 PFSH PFSH Disclaimer: The information contained in this section may have been updated after the patient was seen, as this information can be updated by other users. Medical History Asthma Hyperlipemia, mixed Restless leg syndrome Hypertension Social History Smoking Status: Current every day smoker tobacco type: cigarettes packs per day: 1 alcohol intake: never substance use type: denies use current occupational status: other Travel in the last 8 weeks?: None housing: apartment Have you lived/traveled outside [place] in past 30 days?: No Contact w/someone who lives/traveled outside [place] past 30 days?: No Exposure to someone with infectious disease in past 14 days?: No Do you have a fever (greater than 100.4 F or 38 C)?: No Have you tested positive for COVID-19?: No Exposed to someone with COVID-19 in past 14 days?: No Do you have a sore throat?: No Do you have a cough?: No Do you have any weakness?: No Do you have any diarrhea?: No Are you experiencing any unusual bleeding?: No Do you have any muscle aches/pain?: No Do you have any abdominal pain?: No Are you experiencing loss of taste or smell?: No Other Medical History Have you received the Flu Vaccine for this season: Yes Have you received the Pneumonia Vaccine: No ROS Obtained: Yes Systems reviewed as appropriate & no additional complaints except as documented Constitutional Constitutional: Reports as per HPI Physical Exam General General appearance: alert and in no apparent distress Head Head exam: normocephalic Eye Eye exam: Present PERRL and EOMI ENT ENT exam: Present normal oropharynx and mucous membranes moist Neck Neck exam: Present full ROM and trachea midline Respiratory Respiratory exam: Present wheezes Cardiovascular Cardiovascular exam: Present regular rate, normal rhythm, normal heart sounds, +S1 and +S2 Extremities Exam Extremities exam: Present full ROM and normal capillary refill Neurological Exam Neurological exam: Present alert and oriented X3 Skin Skin exam: Present warm and dry Medical Decision Making Medical Records Screening: Per USPSTF and CDC recommendations, given the prevalence of disease in our region, it is our hospital?s policy to screen for HIV and viral Hepatitis for all patients aged 18 and over and those with ongoing risk factors. Gee Inquiry Pt receiving controlled substance: No Gee was queried for this patient: No Vital Signs: 10/09/25 15:25 10/09/25 15:30 10/09/25 16:01 Temperature 98 F Temperature Source Tympanic Pulse Rate 96 H 90 Pulse Rate [Right Brachial] 96 H Respiratory Rate 16 28 H Blood Pressure 147/47 H 111/52 L Blood Pressure [Right Arm] 129/49 L Blood Pressure Mean Blood Pressure Mean [Right Arm] 75 Blood Pressure Source [Right Arm] Automatic Cuff Blood Pressure Position [Right Arm] Sitting 02 Sat by Pulse Oximetry 96 98 100 Oxygen Delivery Method Room Air 10/09/25 16:30 10/09/25 17:23 10/09/25 17:25 Temperature Temperature Source Pulse Rate Pulse Rate [Right Brachial] Respiratory Rate 26 H 21 Blood Pressure 105/42 L 84/55 L 136/47 L Blood Pressure [Right Arm] Blood Pressure Mean 67 Blood Pressure Mean [Right Arm] Blood Pressure Source [Right Arm] Blood Pressure Position [Right Arm] 02 Sat by Pulse Oximetry 90 L 90 L Oxygen Delivery Method 10/09/25 17:33 10/09/25 18:00 10/09/25 18:30 Temperature Temperature Source Pulse Rate 62 96 H 86 Pulse Rate [Right Brachial] Respiratory Rate Blood Pressure 121/45 L 132/70 124/40 L Blood Pressure [Right Arm] Blood Pressure Mean Blood Pressure Mean [Right Arm] Blood Pressure Source [Right Arm] Blood Pressure Position [Right Arm] 02 Sat by Pulse Oximetry 90 L 96 96 Oxygen Delivery Method 10/09/25 19:00 Temperature Temperature Source Pulse Rate 81 Pulse Rate [Right Brachial] Respiratory Rate Blood Pressure 108/53 L Blood Pressure [Right Arm] Blood Pressure Mean Blood Pressure Mean [Right Arm] Blood Pressure Source [Right Arm] Blood Pressure Position [Right Arm] 02 Sat by Pulse Oximetry 90 L Oxygen Delivery Method Lab Data Lab Results 10/09/25 15:25: WBC 11.3 H, RBC 2.48 L, Hgb 8.2 L, Hct 24.2 L, MCV 97.6, MCH 33.1 H, MCHC 33.9, RDW 13.2, Plt Count 369, MPV 9.2, Neut % (Auto) 65.8, Lymph % (Auto) 24.5, [place] % (Auto) 8.4, Eos % (Auto) 0.3, Baso % (Auto) 0.4, Neut # (Auto) 7.4, Lymph # (Auto) 2.8, [place] # (Auto) 1.0, Eos # (Auto) 0.0, Baso # (Auto) 0.0, D-Dimer 0.54 H, Sodium 130 L, Potassium 3.7, Chloride 98, Carbon Dioxide 22, Anion Gap 13.7, BUN 35 H, Creatinine 0.80, Estimated Creat Clear 44, Estimated GFR 71, Est GFR ( Amer) 85, Glucose 110 H, Calcium 9.2, Magnesium 1.9, Total Bilirubin 0.5, AST 42 H, ALT 29, Alkaline Phosphatase 74, T roponin I 0.28 H, NT-Pro-B Natriuret Pep 1490 H, Total Protein 6.6, Albumin 4.1, Globulin 2.5, Albumin/Globulin Ratio 1.6, Lipase 65 10/09/25 18:53: Troponin I 0.17 H 10/09/25 15:25 10/09/25 15:25 Orders (Tests/Meds): ED MEDICATIONS Discontinued Medications Generic Name Dose Route Start Last Admin Trade Name Freq PRN Reason Stop Dose Admin Albuterol/Ipratropium 9 ml 10/09/25 15:30 10/09/25 15:50 Ipratropium/Albuterol 3 Ml Neb IH 10/09/25 15:31 9 ml ONCE ONE Administration Aspirin 325 mg 10/09/25 15:30 10/09/25 15:49 Aspirin 325mg Tablet PO 10/09/25 15:31 325 mg ONCE ONE Administration Dexamethasone Sodium Phosphate 10 mg 10/09/25 15:30 10/09/25 15:56 Dexamethasone 4mg/Ml 1ml Vial IV 10/09/25 15:31 10 mg ONCE ONE Administration Magnesium Sulfate 2 gm in 50 mls @ 50 mls/hr 10/09/25 15:30 10/09/25 17:19 Magnesium Sulfate 2gm/50ml Premix IV 10/09/25 16:29 Infused ONCE ONE Infusion Iopamidol 70 ml 10/09/25 17:04 10/09/25 17:05 Iopamidol-370 (76%);100ml Bottle IV 10/09/25 17:05 70 ml ONCE ONE Administration Sodium Chloride 10 ml 10/09/25 17:04 10/09/25 17:05 Sodium Chloride 0.9% 10ml Syr (Rad Only) IV 10/09/25 17:05 10 ml ONCE ONE Administration Sodium Chloride 50 ml 10/09/25 17:04 10/09/25 17:05 0.9 % Sodium Chloride 50 Ml Vial IV 10/09/25 17:05 50 ml ONCE ONE Administration ORDERS Category Date Time Status CTA Chest [CT angio chest PE protocol] Stat Cat Scan 10/09/25 16:04 Completed Chest XR -- portable [XR chest portable] Stat Exams 10/09/25 15:30 Completed BNP [NT Pro Brain Natriuretic Pep.] Stat Lab 10/09/25 15:25 Completed CBC [Complete Blood Count Auto Diff] Stat Lab 10/09/25 15:25 Completed Comprehensive Metabolic Panel Stat Lab 10/09/25 15:25 Completed D-Dimer Stat Lab 10/09/25 15:25 Completed Lipase Stat Lab 10/09/25 15:25 Completed Magnesium Stat Lab 10/09/25 15:25 Completed Trop I [Troponin I] Stat Lab 10/09/25 15:25 Completed Troponin I Q3H Lab 10/09/25 18:53 Completed Troponin I Q3H Lab 10/09/25 21:45 Ordered HEART Score History (anamnesis): Slightly suspicious ECG: Normal Age: >65 years Risk factors: 3 or more risk factors Troponin: 1-3x normal limit HEART Score: 5 Medical Decision Narrative: patient is a 74-year-old female presenting to the emergency department for evaluation of weakness, dizziness, shortness of air and right hip pain. Patient is hemodynamically stable and nontoxic-appearing upon arrival, afebrile. Differential diagnosis includes COPD exacerbation,, COVID, flu, other viral illness, PE, ACS, among others. Workup will be conducted with hematologic labs, specific imaging, provocative tests. Initial inventions include analgesics. White count is 11.3, hemoglobin is 8 crit is 24, dimer was 0.54 and we did do a CTA which was negative. Sodium was 130 troponin was 0.28, second troponin was 0.17, BNP was 1490. Patient was explained that these numbers showed an NSTEMI. I talked to her and discussed the risk and Dr. Shelton talked to her and discussed the risk. She says that she does not want to stay and she does not care and she wants to go home. She wants to smoke. Patient will sign AMA form. Critical Care Critical Care Time Critical Care Time: No
--- NOTE | 2025-10-09 15:30 | XR_ITS ---
FINAL REPORT CLINICAL HISTORY: SOB N/V Body Aches Hold/Cold Flashes COMPARISON: None FINDINGS: The heart size is normal. The mediastinum is normal. The lungs are hyperinflated. There are mild chronic changes. There is no focal infiltrate or edema. There are no pleural effusions. There is no pneumothorax. There is no osseous abnormality. IMPRESSION: No acute cardiopulmonary process Reviewed, Interpreted and Dictated by Benny Gross MD Transcribed by Danielle Lee Authenticated and [facility]
--- NOTE | 2025-10-09 15:31 | ECG_ITS ---
APPROVED REPORT Exam: Resting ECG HR:95 bpm ECG Measurements Heart Rate [address] 149 P 87 QRSd 79 QRS 82 QT 342 T 69 QTc 395 Conclusion SINUS RHYTHM POSSIBLE LEFT ATRIAL ENLARGEMENT [-0.1mV P-WAVE IN V1/V2] BORDERLINE ECG UNCONFIRMED REPORT Electronically signed by : ANDERSON ARRIETA, 10/12/2025 00:19:32
[2025-10-09 15:40] LABS: Hematocrit 24.2 % (37.0-47.0); Hemoglobin 8.2 g/dL (12.2-16.2); Immature Granulocytes % 0.6 %; Mean Corpuscular HGB Conc 33.9 g/dL (31.8-35.4); Mean Corpuscular Hemoglobin 33.1 pg (27.0-31.2); Mean Corpuscular Volume 97.6 fl (81-99); Nucleated Red Blood Cells % 0 %; Platelet Count 369 K/mm3 (142-424); Red Blood Count 2.48 M/mm3 (4.20-5.40); Red Cell Distribution Width-SD 46.5 fL; White Blood Count 11.3 K/mm3 (4.8-10.8)
[2025-10-09 15:49] LABS: Alanine Aminotransferase 29 U/L (12-78); Albumin Level 4.1 g/dl (3.5-5.0); Albumin/Globulin Ratio 1.6 (1.1-1.8); Alkaline Phosphatase 74 U/L (38-126); Anion Gap 13.7 mEq/L (5-15); Aspartate Amino Transferase 42 U/L (14-36); Bilirubin,Total 0.5 mg/dl (0.2-1.3); Blood Urea Nitrogen 35 mg/dl (7-17); Calcium 9.2 mg/dl (8.4-10.2); Carbon Dioxide 22 mmol/L (22.0-30.0); Chloride 98 mmol/L (98-107); Creatinine Clearance Estimated 44 mL/min (50-200); Creatinine,Serum 0.80 mg/dl (0.52-1.04); Estimated Glomerular Filt Rate 71 ml/min (>60); GFR (African American) 85 ML/MIN (>60); Globulin 2.5 g/dL (1.3-3.2); Glucose 110 mg/dl (74-100); Lipase 65 U/L (23-300); Magnesium 1.9 mg/dl (1.6-2.3); Potassium 3.7 mmoL/L (3.5-5.1); Sodium 130 mmol/L (136-145); Total Protein,Serum 6.6 g/dl (6.3-8.2)
[2025-10-09] MEDS: ASPIRIN 325MG TABLET 325 MG PO (15:49)
[2025-10-09] MEDS: MAGNESIUM SULFATE IN WATER 2 GM/50 ML PIGGYBACK IV (15:50)
[2025-10-09] MEDS: IPRATROPIUM/ALBUTEROL 3 ML NEB 9 ML IH (15:50)
[2025-10-09 15:53] LABS: D-Dimer 0.54 ug/mL (0.0-0.5)
[2025-10-09] MEDS: DEXAMETHASONE 4MG/ML 1ML VIAL 10 MG IV (15:56)
[2025-10-09 15:58] LABS: NT Pro Brain Natriuretic Pep. 1490 pg/mL (0-125)
[2025-10-09 16:03] LABS: Troponin I 0.28 ng/ml (0.00-0.034)
--- NOTE | 2025-10-09 16:03 | PC.NURSE ---
Dr. Shelton notified of Troponin of 0.28.
--- NOTE | 2025-10-09 16:04 | CT_ITS ---
PROCEDURE INFORMATION: Exam: CTA Chest Without And With Contrast Exam date and time: 10/09/2025 4:58 PM Age: 74 years old Clinical indication: Shortness of breath; Additional info: SOA TECHNIQUE: Imaging protocol: Computed tomographic angiography of the chest without and with contrast. Exam focused on the arteries. 3D rendering (Not supervised by radiologist): MIP and/or 3D reconstructed images were created by the technologist. Total images: 851 Radiation optimization: All CT scans at this facility use at least one of these dose optimization techniques: automated exposure control; mA and/or kV adjustment per patient size (includes targeted exams where dose is matched to clinical indication); or iterative reconstruction. Contrast material: ISOVUE; Contrast volume: 80 ml; Contrast route: INTRAVENOUS (IV); COMPARISON: CR XR CHEST PORTABLE 10/09/2025 3:37 PM FINDINGS: Pulmonary arteries: Adequate contrast opacification of the pulmonary arteries. The main pulmonary artery is normal in caliber. No acute pulmonary emboli. Aorta: Severely atherosclerotic thoracic aorta without aneurysm or dissection. Thyroid: Multinodular thyroid gland, including a 16 mm peripherally calcified nodule or cyst on the right. Lungs: The trachea and main bronchi are patent. Biapical scarring. Severe upper lobe predominant centrilobular emphysema. Fine linear bibasilar scarring. No acute infiltrate or airspace consolidation. No pulmonary mass. Calcified right pulmonary granuloma. Pleural spaces: Unremarkable. No pneumothorax. No pleural effusion. Heart: Normal heart size. No pericardial effusion. Coronary arteries: Coronary artery calcifications. Mediastinal space: No mediastinal mass or hematoma. Lymph nodes: No mediastinal or hilar lymphadenopathy. Partially calcified right hilar lymph nodes. Spleen: Calcified splenic granuloma. Adrenal glands: Left adrenal gland thickening without focal mass. Bones/joints: Osteopenia. Increased thoracic kyphosis. Moderate degenerative changes of the thoracic spine. Mild thoracic levocurvature. Soft tissues: Unremarkable. IMPRESSION: 1. No acute intrathoracic process. Specifically, no acute pulmonary emboli. 2. Severely atherosclerotic thoracic aorta without aneurysm or dissection. 3. Severe upper lobe predominant centrilobular emphysema. 4. Remote calcified granulomatous disease. 5. Multinodular thyroid gland. Consider follow-up nonemergent thyroid ultrasound. COMMENTS: 1. Consistent with the [employer]'s Incidental Findings Committee white paper (J Am Any Radiol 2015): In patients aged 35 years and older with an incidental thyroid nodule equal to or greater than 1.[address], MRI or extrathyroidal US, further evaluation with dedicated thyroid US is recommended for patients with normal life expectancy and without comorbidities. For smaller nodules without suspicious features, no further evaluation or follow up is recommended. 2. The presence of pulmonary emphysema on CT is an independent risk factor for lung cancer. In the absence of a history or active diagnosis of lung cancer, it is recommended that this patient with emphysema be evaluated for enrollment in a low dose CT lung cancer screening program.
[2025-10-09] MEDS: SODIUM CHLORIDE 0.9% 10ML SYR (RAD ONLY) 10 ML IV (17:05)
[2025-10-09] MEDS: 0.9 % SODIUM CHLORIDE 50 ML VIAL IV (17:05)
[2025-10-09] MEDS: IOPAMIDOL-370 (76%);100ML BOTTLE 70 ML IV (17:05)
--- NOTE | 2025-10-09 17:24 | PC.NURSE ---
this rn to bedside to round with patient and to reconnect vital sign equipment that was removed. Pt states where in the hell in here can I find a place to smoke? This RN provided education that smoking is not allowed in the hospital. Pt states she will go outside. RN provides education that for the patient's safety she needs to remain on the monitor at this time.
[2025-10-09 19:56] LABS: Troponin I 0.17 ng/ml (0.00-0.034)
== END 2025-10-09 20:23 | disposition home or self-care (01) ==
PROVIDERS: Nurse Practitioner; Emergency Provider Student in an Organized Health Care Education/Training Program; PCP Nurse Practitioner Family
DX: I21.4 Non-ST elevation (NSTEMI) myocardial infarction (principal); E87.1 Hypo-osmolality and hyponatremia; R79.89 Other specified abnormal findings of blood chemistry; R42 Dizziness and giddiness; I10 Essential (primary) hypertension; E78.5 Hyperlipidemia, unspecified; F17.210 Nicotine dependence, cigarettes, uncomplicated
CPT/HCPCS: 36415; 71045; 71275; 80053; 83690; 83735; 83880; 84484; 85025; 85378; 93005; 96365; 96375; 99285; J1100; J3475; Q9967